=== PATIENT | female | born 1970 | race Caucasian/White ===

== ENCOUNTER 2020-11-11 16:50 | Emergency (ER) | payer BC ==
[~2020-11-11] VITALS: Ht 157.5 cm; Wt 56.2 kg
[2020-11-11] MEDS ORDERED: methylPREDNISolone SOD SUCC 125 MG/2 ML VIAL IV ONE (17:00)
[2020-11-11] MEDS ORDERED: ALBUTEROL SULFATE 2.5 MG/3 ML NEBU NEB ONE (17:00)
[2020-11-11] MEDS ORDERED: FAMOTIDINE. 20 MG/2 ML VIAL IV ONE ×2 (17:00→17:20)
[2020-11-11] MEDS ORDERED: IV NORMAL SALINE 500 ML BAG IV ONE (17:00)
[2020-11-11] MEDS ORDERED: methylPREDNISolone SOD SUCC 125 MG/2 ML VIAL ONE (17:20)
[2020-11-11] MEDS ORDERED: ALBUTEROL SULFATE 2.5 MG/3 ML NEBU ONE (17:25)
[2020-11-11] MEDS ORDERED: ALPRAZOLAM 0.25 MG TABLET PO ONE (17:30)
[2020-11-11] MEDS ORDERED: ALPRAZOLAM 0.25 MG TABLET ONE (17:31)
[2020-11-11] MEDS ORDERED: ESTROGEN (17:32)
[2020-11-11] MEDS ORDERED: ESCI5TAB PO (17:32)
[2020-11-11] MEDS ORDERED: PROGESTERON (17:32)
[2020-11-11] MEDS ORDERED: LIDOCAINE VISCUS 2% 15 ML UDC MM ONE (17:45)
[2020-11-11] MEDS ORDERED: MAG HYDROX/AL HYDROX/SIMETH 30 ML LIQUID UDC PO ONE (17:45)
--- NOTE | 2020-11-11 17:50 | NUR ---
Patient states she feels better and requested to hold off on maalox and viscuous lidocaine ERMD aware.
[2020-11-11] MEDS ORDERED: MAG HYDROX/AL HYDROX/SIMETH 30 ML LIQUID UDC ONE (17:52)
[2020-11-11] MEDS ORDERED: LIDOCAINE VISCUS 2% 15 ML UDC ONE (17:52)
[2020-11-11] MEDS ORDERED: EPIN0.3P3 IJ (18:16)
[2020-11-11] MEDS ORDERED: ALBU6.7H9 INH (18:16)
--- NOTE | 2020-11-11 19:07 | NUR ---
Patient discharged to home in stable condition. Written and verbal after care instructions given. Patient verbalizes understanding of instructions. Stressed follow up or return to ER for worsening s/s.
[2020-11-11 19:12] VITALS: BP 132/80
== END 2020-11-11 19:13 | disposition home or self-care (01) ==
LOC: ER 16:51
DX: T63.441A Toxic effect of venom of bees, accidental (unintentional), initial encounter (principal); T78.2XXA Anaphylactic shock, unspecified, initial encounter; Y92.89 Other specified places as the place of occurrence of the external cause; F41.0 Panic disorder [episodic paroxysmal anxiety]
CPT/HCPCS: 94640; 96361; 96374; 96375; 99284; J2930; J3490; A4663